=== PATIENT | male | born 1995 | race Caucasian/White ===

== ENCOUNTER 2019-05-16 19:50 | Emergency (ER) | payer MEDICAID ==
[~2019-05-16] VITALS: Ht 172.7 cm; Wt 83.9 kg
[2019-05-16 20:00] VITALS: BP 150/92
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
--- NOTE | 2019-05-16 20:03 | NUR ---
ED Nurse Note: ERPA at bedside.
--- NOTE | 2019-05-16 20:20 | NUR ---
ED Nurse Note: Pt taken for Xray.
--- NOTE | 2019-05-16 20:20 | NUR ---
Dave sanchez in EDM - 05/16/19 at 2035 by JASON ED Nurse Note: Xray at bedside.
--- NOTE | 2019-05-16 20:36 | NUR ---
ED Nurse Note: Pt came back from Xray.
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
[2019-05-16] MEDS ORDERED: ROBAXIN-500MG ORAL (21:06)
[2019-05-16] MEDS ORDERED: LIDODERM700 M1 TOPIC (21:06)
[2019-05-16] MEDS ORDERED: IBU800 MG PO (21:06)
[2019-05-16] MEDS ORDERED: Methocarbamol 750mg tab ORAL ONE (21:15)
[2019-05-16 21:18] VITALS: BP 150/92
--- NOTE | 2019-05-16 21:18 | NUR ---
ED Nurse Note: Pt cleared by ERMD for discharge. DC instructions/prescription was given and explained to pt and verbalized understanding of teachings. All medical deviecs such as ID band removed. Pt is AAO x4, ambulatory and left with all personal belongings. Accompanied by family member.
== END 2019-05-16 21:18 | disposition home or self-care (01) ==
LOC: EMR 21:18
DX: S00.93XA Contusion of unspecified part of head, initial encounter (principal); S13.4XXA Sprain of ligaments of cervical spine, initial encounter; S23.3XXA Sprain of ligaments of thoracic spine, initial encounter; V43.52XA Car driver injured in collision with other type car in traffic accident, initial encounter; Y92.411 Interstate highway as the place of occurrence of the external cause
CPT/HCPCS: 70450; 72070; Z7502; 99284